=== PATIENT | female | born 1950 | race Caucasian/White ===

== ENCOUNTER 2018-05-22 07:30 | Emergency (ER) | payer MEDICARE, OTHER ==
--- NOTE | 2018-05-22 07:51 | EDM.PDOC ---
ED HPI GENERAL MEDICAL PROBLEM - General Chief Complaint: Wound Recheck Stated Complaint: REMOVE STITCHES Time Seen by Provider: 05/22/18 07:45 Source of Information: Reports: Patient, Family History Limitations: Reports: No Limitations - History of Present Illness INITIAL COMMENTS - FREE TEXT/NARRATIVE: 68-year-old female with a left scalp laceration sutured 10 days ago, has healed very nicely and is here for suture removal. Duration: Day(s): (10 days ago) - Related Data Allergies Allergy/AdvReac Type Severity Reaction Status Date / Time No Known Allergies Allergy Verified 05/14/18 17:08 Home Meds: Home Meds Levothyroxine 25 mcg PO ACBREAKFAST 05/14/18 [History] Mirtazapine 30 mg PO DAILY 05/14/18 [History] Opium Tincture 10 mg PO BID 05/14/18 [History] Sodium Bicarbonate 650 mg PO QID 05/14/18 [History] Past Medical History - Past Health History Medical/Surgical History: Denies Medical/Surgical History HEENT History: Reports: Impaired Vision Gastrointestinal History: Reports: Other (See Below) Other Gastrointestinal History: ileostomy Endocrine/Metabolic History: Reports: Hypothyroidism Oncologic (Cancer) History: Reports: Breast - Infectious Disease History Infectious Disease History: Reports: C-Difficile, Measles, Mumps - Past Surgical History GI Surgical History: Reports: Cholecystectomy Musculoskeletal Surgical History: Reports: Knee Replacement Social & Family History - Tobacco Use Smoking Status *Q: Never Smoker - Caffeine Use Caffeine Use: Reports: None - Recreational Drug Use Recreational Drug Use: No ED ROS GENERAL - Review of Systems Review Of Systems: See Below Constitutional: Denies: Fever Musculoskeletal: Denies: Neck Pain Neurological: Denies: Headache ED EXAM, SKIN/RASH Exam: See Below Exam Limited By: No Limitations General Appearance: Alert, No Apparent Distress Head: Other (Patient has a healed irregular laceration on the left parietal scalp, with intact sutures) Course - Vital Signs Last Recorded V/S: Last Vital Signs Temp 96.6 F 05/22/18 07:48 Pulse 108 H 05/22/18 07:48 Resp 16 05/22/18 07:48 BP 155/96 H 05/22/18 07:48 Pulse Ox 92 L 05/22/18 07:48 - Re-Assessments/Exams Free Text/Narrative Re-Assessment/Exam: 05/22/18 07:50 Sutures were removed without difficulty, the area was cleaned with alcohol and no further treatment is needed. Departure - Departure Time of Disposition: 07:56 Disposition: Home, Self-Care 01 Condition: Good Clinical Impression: Visit for suture removal - Discharge Information Instructions: Suture Removal, Care After Referrals: PCP,None [Primary Care Provider] - Forms: ED Department Discharge Care Plan Goals: Resume activity and diet as tolerated. Enjoy your [place]
== END 2018-05-22 07:56 | disposition home or self-care (01) ==
LOC: JP.ED 07:30
DX: S01.01XD Laceration without foreign body of scalp, subsequent encounter (principal); E03.9 Hypothyroidism, unspecified; Z79.899 Other long term (current) drug therapy; X58.XXXD Exposure to other specified factors, subsequent encounter
CPT/HCPCS: 99281